=== PATIENT | female | born 1980 | race Caucasian/White ===

== ENCOUNTER 2017-09-23 17:59 | Emergency (ER) | payer OTHER ==
--- NOTE | 2017-09-23 19:26 | XRAY Report ---
EXAM: CHEST RADIOGRAPHY EXAM DATE: 09/23/2017 07:17 PM. CLINICAL HISTORY: Chest pain. COMPARISON: None. TECHNIQUE: 2 views. FINDINGS: Lungs/Pleura: No focal opacities evident. No pleural effusion. No pneumothorax. Normal volumes. Mediastinum: Heart and mediastinal contours are unremarkable. Other: None. IMPRESSION: No acute intrathoracic plain film abnormality. [facility] Referring Provider Line: [phone] SITE ID: [id number]
--- NOTE | 2017-09-23 19:56 | ED Physician Documentation ---
History of Present Illness - Stated complaint Stated Complaint: CHEST WALL PAIN/WHEEZING - Chief complaint Chief Complaint: Cardiac - History obtained from History obtained from: Patient (pt states that for the past couple days she has had sinus congestion, chest congestion, dry cough, subjective fevers, not feeling well. states that her kids have been sick.) Review of Systems Constitutional: reports: Fever, Chills Nose: reports: Congestion, Sinus pressure / pain Throat: reports: Sore throat Cardiac: reports: Chest pain / pressure. denies: Palpitations Respiratory: reports: Dyspnea, Cough. denies: Hemoptysis, Wheezing GI: reports: Nausea. 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 ligation - Present Medications Home Medications: Ambulatory Orders Medication Instructions Recorded Confirmed Bupropion HCl [Wellbutrin] 300 mg PO DAILY 01/29/15 09/23/17 Sertraline [Zoloft] 50 mg PO DAILY 01/29/15 09/23/17 Benzonatate [Tessalon Perle] 100 - 200 mg PO TID PRN #30 capsule 09/23/17 - Allergies Allergies/Adverse Reactions: Allergies Allergy/AdvReac Type Severity Reaction Status Date / Time amoxicillin Allergy Intermediate Rash Verified 09/23/17 19:02 erythromycin base Allergy Intermediate Rash Verified 09/23/17 19:02 Penicillins Allergy Unknown Verified 09/23/17 19:02 Sulfa (Sulfonamide Allergy Unknown Verified 09/23/17 18:11 Antibiotics) vancomycin Allergy Unknown Verified 09/23/17 18:11 - Social History Does the pt smoke?: No Smoking Status: Never smoker Does the pt drink ETOH?: No Does the pt have substance abuse?: No - Immunizations Immunizations are current?: Yes - POLST Patient has POLST: No PD ED PE NORMAL - Vitals Vital signs reviewed: Yes - General General: Alert and oriented X 3, No acute distress, Well developed/nourished - HEENT HEENT: Other (left TM obscured by wax right TM normal ) - Cardiac Cardiac: RRR (tachycardic but regular), No murmur, No gallop, No rub - Respiratory Respiratory: No respiratory distress, Clear bilaterally - Abdomen Abdomen: Soft, Non tender - Derm Derm: Normal color, No rash - Extremities Extremities: No deformity, No edema - Neuro Neuro: Alert and oriented X 3 Eye Opening: Spontaneous Motor: Obeys Commands Verbal: Oriented GCS Score: 15 - Psych Psych: Normal mood, Normal affect Results - Vitals Vitals: Vital Signs - 24 hr 09/23/17 09/23/17 18:01 19:03 Temperature 37.5 C Heart Rate 111 H 85 Respiratory 20 18 Rate Blood Pressure 155/98 H 138/81 H O2 Saturation 100 100 Oxygen O2 Source Room air - EKG (time done) 1809 Rate: Rate (enter#) [place]: Normal Intervals: Normal HI, QRS normal QRS: Normal Ischemia: Normal ST segments - Rads (name of study) CXR Radiology: Final report received (no acute process), EMP read contemporaneously PD MEDICAL DECISION MAKING - ED course Complexity details: reviewed results, considered differential, d/w patient ED course: low risk for ACS, CXR neg, her sx or C/W flu like illness. lungs clear. no indication for ABX. discussed with patient. she was given return precautions. Departure - Departure Disposition: 01 Home, Self Care Clinical Impression: Atypical chest pain, Flu-like symptoms Condition: Good Instructions: ED Chest Pain NonCardiac, ED Viral Syndrome Follow-Up: LEVI MOTA [Primary Care Provider] - Prescriptions: Benzonatate [Tessalon Perle] 100 - 200 mg PO TID PRN #30 capsule PRN Reason: Cough Comments: Take all of your medications as directed. Return to the ER for any new or worsening symptoms.
[2017-09-23 20:46] VITALS: BP 130/75
== END 2017-09-23 20:31 | disposition home or self-care (01) ==
LOC: ED 17:59
DX: R07.89 Other chest pain (principal); R05 Cough; J34.89 Other specified disorders of nose and nasal sinuses
CPT/HCPCS: 71046; 80053; 83690; 84484; 85025; 93005; 99283; 99284

== ENCOUNTER 2017-09-25 11:56 | Emergency (ER) | payer OTHER ==
[2017-09-25] MEDS ORDERED: DEXAMETHASONE 10 MG/ML VIAL PO STA (13:09)
[2017-09-25] MEDS ORDERED: ALBUTEROL NEB 2.5 MG/3 ML INH STA (13:09)
[2017-09-25] MEDS ORDERED: CHERRY SYRUP 10 ML UDC PO ONE (13:27)
--- NOTE | 2017-09-25 13:32 | ED Physician Documentation ---
History of Present Illness - Stated complaint Stated Complaint: FEVER,CHEST CONGESTION - Chief complaint Chief Complaint: Resp - History obtained from History obtained from: Patient - History of Present Illness Pain level max: 0 Pain level now: 0 Improved by: motrin/tylenol Worsened by: exertion - Additonal information Additional information: Patient is a 37-year-old female who presents to the emergency department with chief complaint not feeling well for the past week, states fevers for the past 2 days and wheezing. Feels like there is a rattling in her chest. 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: section, Tubal ligation - Present Medications Home Medications: Ambulatory Orders Medication Instructions Recorded Confirmed Bupropion HCl [Wellbutrin] 300 mg PO DAILY 01/29/15 09/23/17 Sertraline [Zoloft] 50 mg PO DAILY 01/29/15 09/23/17 Benzonatate [Tessalon Perle] 100 - 200 mg PO TID PRN #30 capsule 09/23/17 Albuterol Sulf [Ventolin Hfa 2 puffs INH Q4HR PRN #1 inhaler 09/25/17 Inhaler] Benzonatate [Tessalon Perle] 100 - 200 mg PO TID PRN #30 capsule 09/25/17 - Allergies Allergies/Adverse Reactions: Allergies Allergy/AdvReac Type Severity Reaction Status Date / Time amoxicillin Allergy Intermediate Rash Verified 09/23/17 19:02 erythromycin base Allergy Intermediate Rash Verified 09/23/17 19:02 Penicillins Allergy Unknown Verified 09/23/17 19:02 Sulfa (Sulfonamide Allergy Unknown Verified 09/23/17 18:11 Antibiotics) vancomycin Allergy Unknown Verified 09/23/17 18:11 - Social History Does the pt smoke?: No Smoking Status: Never smoker Does the pt drink ETOH?: No Does the pt have substance abuse?: No - Immunizations Immunizations are current?: Yes - POLST Patient has POLST: No PD ED PE NORMAL - Vitals Vital signs reviewed: Yes - General General: Alert and oriented X 3, No acute distress, Well developed/nourished - HEENT HEENT: PERRL, Ears normal, Moist mucous membranes, Pharynx benign - Neck Neck: Supple, no meningeal sign - Cardiac Cardiac: RRR - Respiratory Respiratory: No respiratory distress, Other (Wheezing bilaterally) - Abdomen Abdomen: Soft, Non tender, Non distended - Derm Derm: Warm and dry - Extremities Extremities: No edema, No calf tenderness / cord - Neuro Neuro: Alert and oriented X 3 - Psych Psych: Normal mood, Normal affect Results - Vitals Vitals: Vital Signs - 24 hr 09/25/17 09/25/17 12:00 13:29 Temperature 37.6 C H Heart Rate 100 88 Respiratory 18 14 Rate Blood Pressure 133/75 H O2 Saturation 99 Oxygen O2 Source Room air - Labs Labs: Laboratory Tests 09/25/17 12:56 Influenza A (Rapid) Negative Influenza B (Rapid) POSITIVE H Influenza Types A,B Ag + H PD MEDICAL DECISION MAKING - ED course Complexity details: reviewed old records, reviewed results, re-evaluated patient , considered differential, d/w patient ED course: Patient is a 37-year-old female presents to the emergency department with influenza B. She is well-appearing, nontoxic. No hypoxia. Does have wheezing bilaterally that improved with nebulizer treatment. Will place on albuterol for home as well as cough medication. She is well-appearing, nontoxic. Normal chest x-ray 2 days ago, will not repeat this today. Patient counseled regarding signs and symptoms for which I believe and urgent re-evaluation would be necessary. Patient with good understanding of and agreement to plan and is comfortable going home at this time This document was made in part using voice recognition software. While efforts are made to proofread this document, sound alike and grammatical errors may occur. Departure - Departure Disposition: 01 Home, Self Care Clinical Impression: Influenza B Condition: Good Instructions: ED Flu Follow-Up: LEVI MOTA [Primary Care Provider] - Within 1 week (if not better) Prescriptions: Albuterol Sulf [Ventolin Hfa Inhaler] 2 puffs INH Q4HR PRN #1 inhaler PRN Reason: Wheezing Benzonatate [Tessalon Perle] 100 - 200 mg PO TID PRN #30 capsule PRN Reason: Cough Comments: Return if you worsen. Your flu swab is positive today. This should start to improve over the next few days.
[2017-09-25 14:04] VITALS: BP 108/90
== END 2017-09-25 13:57 | disposition home or self-care (01) ==
LOC: ED 11:56
DX: J10.1 Influenza due to other identified influenza virus with other respiratory manifestations (principal)
CPT/HCPCS: 87275; 87276; 94640; 94664; 99283; A9270; J7613

== ENCOUNTER 2021-10-29 09:49 | Outpatient (CLI) | payer OTHER ==
[2021-10-29] MEDS ORDERED: GADOBUTROL 10 MMOL/10 ML VIAL ONE (10:07)
[2021-10-29] MEDS ORDERED: GADOBUTROL 10 MMOL/10 ML VIAL IVP ONE (16:49)
--- NOTE | 2021-10-30 09:17 | MRI Report ---
PROCEDURE: Pelvis W/WO INDICATIONS: ENDOCERVICAL CYST CONTRAST: IV CONTRAST: Gadavist ml: 8.8 TECHNIQUE: Coronal ultra fast SE, sagittal breath-hold T2 FSE; axial T1 FSE with and without fat saturation thro ugh the pelvis. Optional long- and short-axis uterine nonbreath-hold T2 FSE through the uterus. Sag ittal or axial dynamic ultra fast GE during administration of contrast. Post-contrast axial or coron al ultra fast GE / 2-D spoiled GE with fat saturation from the iliac crests to the symphysis. Option al diffusion weighted imaging and ADC may be performed. COMPARISON: None. FINDINGS: Image quality: Excellent. Uterus: Multiple prominent cysts are seen within the cervix. The largest area of cysts is located an teriorly measuring approximately 4.3 x 3.0 x 1.7 cm, with protrusion beyond the expected serosal [place] in of the cervix. It is difficult to determine if this represents one large lobulated septated cyst v ersus numerous adjacent cysts. A cyst located along the inferior right6 measuring 1.9 x 0.7 x 0.6 cm partially protrudes into the cervical lumen. Additional smaller focus of loculated within the cervix, and adjacent to the endocervical canal as well as the subserosal surface. These cysts demonstrate th in peripheral rim of enhancement, as expected for simple cysts. Uterus is normal in size. Endometrium is normal in thickness. Junctional zone is at the upper limit s of normal measuring 12 mm in thickness. No enhancing uterine mass or fibroid is seen. Adnexa: Both ovaries are normal in size, without suspicious cystic or solid lesions. Urinary system: Bladder wall is normal in thickness. Distal ureters are non distended. Urethra elva ears normal in morphology. Nodes and vessels: No pelvic or inguinal adenopathy by size criteria. Iliac vessels are normal in s ize. Bowel and peritoneum: Small amount of free fluid in the pelvis is most likely physiologic. Inferior colon and small bowel loops are normal in caliber. Soft tissues: No inguinal hernias. No findings of pelvic floor incompetence in the absence of provo cation. Bones: Disc desiccation and mild degenerative endplate changes are seen in the included lower lumbar spine. IMPRESSION: 1.Multiple prominent cervical simple cysts are seen, some of which protrude into the endocervical can al and protruding into the peripheral subserosal regions. No suspicious solid component or nodular en hancement is seen. 2.Junctional zone is at the upper limits of normal in thickness measuring 12 mm. Recommend clinical c orrelation to exclude adenomyosis. 3.Small amount of free fluid in the pelvis is most likely physiologic. Reviewed by: James Mcghee MD on 10/30/2021 9:16 AM PST Approved by: James Mcghee MD on 10/30/2021 9:16 AM PST Station ID: [id number]
== END 2021-10-29 09:50 | disposition home or self-care (01) ==
LOC: DI 09:49
PROVIDERS: ATTEND Nurse Practitioner Family
DX: N88.8 Other specified noninflammatory disorders of cervix uteri (principal)
CPT/HCPCS: 72197; A9585